=== PATIENT | male | born 1985 | race Two or more races ===

== ENCOUNTER 2019-08-16 14:14 | Emergency (ER) | payer MEDICAID ==
[~2019-08-16] VITALS: Ht 170.2 cm; Wt 127.0 kg
[2019-08-16 15:42] VITALS: BP 157/87
== END 2019-08-16 16:13 | disposition home or self-care (01) ==
LOC: ER 14:14
DX: M79.632 Pain in left forearm (principal)
CPT/HCPCS: 73090